=== PATIENT | male | born 1995 | race Caucasian/White ===

== ENCOUNTER 2018-05-25 19:21 | Emergency (ER) | payer OTHER ==
[2018-05-25 20:03] VITALS: RESP 18
[2018-05-25 20:15] VITALS: O2SAT 100
[2018-05-25] MEDS ORDERED: Sodium Chloride 0.9% 1,000 ML IV ONE (20:31)
[2018-05-25] MEDS ORDERED: Sodium Chloride 0.9% 1,000 ML ONE (20:41)
[2018-05-25 20:47] LABS: BASO # 0.1 K/uL (0.0-0.2); BASO % 0.5 % (0.0-2.0); EOS # 0.3 K/uL (0.0-0.7); EOS % 2.7 % (0.0-4.0); HEMOGLOBIN 14.2 g/dL (12.0-18.0); LYMPH # 2.1 K/uL (1.0-4.3); LYMPH % 17.5 % (20.0-40.0); MEAN CELL VOLUME 90.7 fL (80.0-94.0); MEAN CORPUSCULAR HEMOGLOBIN 30.8 pg (27.0-31.0); MEAN PLATELET VOLUME 8.4 fL (7.2-11.7); MONO # 1.1 K/uL (0.0-0.8); MONO % 8.9 % (0.0-10.0); NEUT # 8.5 K/uL (1.8-7.0); NEUT % 70.4 % (50.0-75.0); RBC 4.62 Mil/uL (4.40-5.90); RED CELL DISTRIBUTION WIDTH 12.3 % (11.5-14.5)
[2018-05-25 20:54] LABS: URINE BACTERIA RARE (<OCC); URINE BILIRUBIN NEGATIVE (NEGATIVE); URINE BLOOD NEGATIVE (NEGATIVE); URINE CLARITY Clear (Clear); URINE COLOR Yellow (YELLOW); URINE GLUCOSE (UA) NORMAL (Normal); URINE LEUKOCYTE ESTERASE NEG Leu/uL (Negative); URINE PROTEIN NEGATIVE (NEGATIVE); URINE UROBILINOGEN NORMAL mg/dL (0.2-1.0)
[2018-05-25 21:13] LABS: ALB/GLOB RATIO 1.5 (1.0-2.1); ALBUMIN 4.7 g/dL (3.5-5.0); ALT/SGPT 44 U/L (21-72); AST/SGOT 36 U/L (17-59); BLOOD UREA NITROGEN 17 mg/dL (9-20); CALCIUM 9.2 mg/dl (8.6-10.4); GFR NON-AFRICAN AMERICAN > 60
--- NOTE | 2018-05-25 21:40 | C.PDOC ---
History Of Present Illness 23 year old male presents to the ER with a complaint of right testicular pain since last night while at work. Patient reports a Hx of heavy lifting at work, earlier today the pain radiated to his right lower back. Pain is worse on am bulation and movement. Denies nausea, vomiting, dysuria, hematuria, penile discharge, or penile lesions. Time Seen by Provider: 05/25/18 20:16 Chief Complaint (Nursing): Male Genitourinary History Per: Patient History/Exam Limitations: no limitations Onset/Duration Of Symptoms: Days (Yesterday) Current Symptoms Are (Timing): Still Present Quality Of Discomfort: Unable To Describe Associated Symptoms: Back Pain. denies: Nausea, Vomiting, Other (Dysuria, Hematuria, Penile discharge, Penile lesions) Alleviating Factors: None Recent travel outside of the [place]: No Past Medical History Reviewed: Historical Data, Nursing Documentation, Vital Signs Vital Signs: Last Vital Signs Temp 98.0 F 05/25/18 19:55 Pulse 70 05/25/18 19:55 Resp 18 05/25/18 19:55 BP 142/100 H 05/25/18 19:55 Pulse Ox 100 05/25/18 19:55 - Medical History PMH: Seizures Family History: States: Unknown Family Hx - Social History Hx Alcohol Use: No Hx Substance Use: No - Immunization History Hx Tetanus Toxoid Vaccination: No Hx Influenza Vaccination: No Hx Pneumococcal Vaccination: No Review Of Systems Constitutional: Negative for: Fever, Chills Gastrointestinal: Negative for: Nausea, Vomiting Genitourinary: Positive for: Other (Right testicular pain). Negative for: Dysuria, Hematuria, Penile Discharge, Penile Pain Musculoskeletal: Positive for: Back Pain Physical Exam - Physical Exam Appears: Non-toxic Skin: Normal Color, Warm, Dry Head: Atraumatic, Normacephalic Eye(s): bilateral: Normal Inspection Gastrointestinal/Abdominal: Soft, No Tenderness Back: No CVA Tenderness Male Genital: Testicular Tenderness (Right), Inguinal Tenderness (Right), No Other (Testicular swelling, Testicular elevation, Penile discharge, Hernia) Neurological/Psych: Oriented x3, Normal Speech ED Course And Treatment - Laboratory Results Result Diagrams: 05/25/18 20:42 05/25/18 20:42 O2 Sat by Pulse Oximetry: 100 (Room air) Pulse Ox Interpretation: Normal - CT Scan/US Testicular US Other Rad Studies (CT/US): Read By Radiologist, Radiology Report Reviewed CT/US Interpretation: Clinical history: Pain. Findings: Real-time ultrasound imaging of the testicles and scrotum was performed. The right testicle measures 3.9 x 1.7 x 2.8 cm. The left testicle measures 3.7 x 2.1 x 2.7 cm. The testicles demonstrate normal echo texture and echogenicity. There is a small cyst in the right epididymis measuring up to 1 cm. Normal color Doppler flow and arterial waveforms are seen bilaterally. No fluid collections are seen. Impression: Unremarkable testicles. Small right epididymal cyst. Progress Note: Blood work, urinalysis, and testicular US ordered, results were negative. IV fluids and toradol administered. On reevaluation, patient is resting comfortably in the ER in no acute distress, vitals are stable, will discharge home with Rx and instructions to follow up with PMD or return if symptoms worsen. Disposition Counseled Patient/Family Regarding: Diagnosis, Need For Followup - Disposition Referrals: Yessi Huynh MD [Staff Provider] - Disposition Time: 23:08 Condition: STABLE Additional Instructions: Take medications as directed Follow up with PMD for urology referral as needed Return to ER if pain reccur or worsens, if vomiting, fever, abdominal pain , swelling to genitalia or worse Prescriptions: Ibuprofen [Motrin] 600 mg PO Q6H #24 tab Instructions: Low Back Pain (DC) Forms: [employer] (Albanian) - Clinical Impression Clinical Impression: Low back pain, Right testicular pain - PA / SURGICAL ATTENDANT / Resident Statement MD/DO has reviewed & agrees with the documentation as recorded. - Scribe Statement The provider has reviewed the documentation as recorded by the Scribe Benny Castrejon All medical record entries made by the Eddaibe were at my direction and personally dictated by me. I have reviewed the chart and agree that the record accurately reflects my personal performance of the history, physical exam, medical decision making, and the department course for this patient. I have also personally directed, reviewed, and agree with the discharge instructions and disposition.
[2018-05-25 23:14] VITALS: BP 152/92; PULSE 64; TEMP 97.5
--- NOTE | 2018-05-26 10:53 | US ---
Date of service: 05/25/2018 HISTORY: right testicular pain TECHNIQUE: Realtime sonography through the scrotum with color and doppler flow. COMPARISON: None Available. FINDINGS: RIGHT TESTICLE: Measures 3.9 x 1.7 x 2.8 cm. Homogeneous echotexture. Blood flow is demonstrated. Nonspecific 2 x 1 x 2 mm scrotal calcification evident. RIGHT EPIDIDYMIS: Unremarkable. LEFT TESTICLE: Measures 3.7 x 2.1 x 2.7 cm. Homogeneous echotexture. Blood flow is demonstrated. LEFT EPIDIDYMIS: 0.2 x 0.2 x 0.2 cm cyst. HYDROCELE: Trace small hydroceles. VARICOCELE: None. OTHER FINDINGS: None. IMPRESSION: Trace bilateral hydroceles. 2 mm right scrotal calcification, uncertain significance. 2 mm left epididymal cyst. Preliminary impression was provided by [employer].
== END 2018-05-25 23:22 | disposition home or self-care (01) ==
LOC: C.ER 19:21
DX: N50.811 Right testicular pain (principal); M54.5 Low back pain
CPT/HCPCS: 76870; 80053; 81001; 85025; 96361; 96374; 99284; J1885; J7030